=== PATIENT | female | born 1995 | race Caucasian/White ===

== ENCOUNTER 2025-08-09 22:23 | Emergency (ER) | payer OTHER ==
[2025-08-09] MEDS ORDERED: diphenhydrAMINE 50 MG/ML VIAL ONE (22:37)
[2025-08-09] MEDS ORDERED: Famotidine/PF 20 mg/2ml Vial ONE (22:37)
== END 2025-08-10 02:56 | disposition home or self-care (01) ==
LOC: BURERS 22:23
DX: T78.2XXA Anaphylactic shock, unspecified, initial encounter (principal)
CPT/HCPCS: 96372; 96374; 96375; J0169; J1200; J1308; J2919